=== PATIENT | female | born 1985 | race Caucasian/White ===

== ENCOUNTER 2016-11-29 14:33 | Emergency (ER) | payer MEDICAID ==
[~2016-11-29] VITALS: Ht 162.6 cm; Wt 69.0 kg
[2016-11-29 14:38] VITALS: Ht 162.6 cm; Wt 69.0 kg
[2016-11-29 16:23] LABS: BASOPHILS % 0.3 % (0.0-2.0); EOSINOPHILS # 0.2 10^3/ul (0.0-0.5); EOSINOPHILS % 1.3 % (0.0-7.0); HEMATOCRIT 39.4 % (37.0-47.0); HEMOGLOBIN 13.6 g/dl (12.0-16.0); LYMPHOCYTES # 2.1 10^3/ul (0.8-2.9); LYMPHOCYTES % 14.8 % (15.0-51.0); MEAN CORPUSCULAR HEMOGLOBIN 29.2 pg (29.0-33.0); MEAN CORPUSCULAR HGB CONC 34.6 g/dl (32.0-37.0); MEAN CORPUSCULAR VOLUME 84.5 fl (82.0-101.0); MEAN PLATELET VOLUME 7.6 fl (7.4-10.4); MONOCYTES % 6.8 % (0.0-11.0); NEUTROPHIL # 10.9 10^3/ul (1.6-7.5); NEUTROPHILS % 76.8 % (39.0-77.0); PLATELET COUNT 273 10^3/UL (140-440); RED BLOOD COUNT 4.67 10^6/ul (4.20-5.40); RED CELL DISTRIBUTION WIDTH 12.9 % (11.5-14.5); UNCORRECTED WBC 14.2 10^3/ul (4.8-10.8); WHITE BLOOD COUNT 14.2 10^3/ul (4.8-10.8)
[2016-11-29 16:24] LABS: CONDITION 1
[2016-11-29 16:28] LABS: ADD UMIC YES; URINE BILIRUBIN (Dip) NEGATIVE (NEGATIVE); URINE BLOOD (Dip) 2+ (NEGATIVE); URINE COLOR YELLOW (YELLOW); URINE GLUCOSE (Dip) NEGATIVE (NEGATIVE); URINE KETONES (Dip) NEGATIVE (NEGATIVE); URINE LEUKOCYTE ESTERASE (Dip) NEGATIVE (NEGATIVE); URINE NITRITE (Dip) NEGATIVE (NEGATIVE); URINE TOTAL PROTEIN (Dip) NEGATIVE (NEGATIVE); URINE UROBILINOGEN (Dip) 0.2 E.U./dL (0.1-1.0)
--- NOTE | 2016-11-29 16:44 | ERD ---
ER Documentation Chief Complaint Date/Time DATE: 11/29/16 TIME: 16:40 Chief Complaint SPOTTING TODAY , 10 WEEKS PREG , LMP 09/21/16 HPI This is a 31-year-old female who presents to the emergency department today complaining of some vaginal spotting that started today. Patient indicates she is approximately 10 weeks . She has had some nausea but no vomiting. Denies AP or chills, dysuria, abdominal pain or cramping. States she is scheduled to have a ultrasound this Sunday. States she was seen here at the hospital in July and had a D&C for a failed at that time. ROS All systems reviewed and are negative except as per history of present illness. Medications Home Meds Active Scripts Ondansetron Hcl* (Zofran*) 4 Mg Tablet, 4 MG PO Q6H for NAUSEA AND/OR VOMITING, #30 TAB Prov:NOMAN CARBONE PA-C 11/29/16 Acetaminophen* (Tylophen*) 500 Mg Capsule, 1 CAP PO Q6H Y for PAIN AND OR ELEVATED TEMP, #30 CAP Prov:NOMAN CARBONE PA-C 11/29/16 Allergies Allergies: Coded Allergies: Penicillins (Verified Allergy, Unknown, rash, 08/01/16) PMhx/Soc History of Surgery: No Anesthesia Reaction: No Hx Neurological Disorder: No Hx Respiratory Disorders: No Hx Cardiac Disorders: No Hx Psychiatric Problems: No Hx Miscellaneous Medical Probl: No Hx Alcohol Use: No Hx Substance Use: No Hx Tobacco Use: No Physical Exam Vitals Vital Signs Date Time Temp Pulse Resp B/P Pulse Ox O2 Delivery O2 Flow Rate FiO2 11/29/16 14:38 98.3 86 18 119/71 100 Physical Exam Const: No acute distress Head: Atraumatic Eyes: Normal Conjunctiva ENT: Normal External Ears, Nose and Mouth. Neck: Full range of motion..~ No meningismus. Resp: Clear to auscultation bilaterally Cardio: Regular rate and rhythm, no murmurs Abd: Soft, non tender, non distended. Normal bowel sounds. No right lower quadrant pain. No left lower quadrant pain. Skin: No petechiae or rashes Neur: Awake and alert Psych: Normal Mood and Affect Result Diagram: 11/29/16 1550 Results 24 hrs Laboratory Tests Test 1/11/17 15:57 Basophils # 0.010^3/ul Basophils % 0.3% Beta HCG, Quantitative 33154.0mIU/ml Eosinophils # 0.210^3/ul Eosinophils % 1.3% Hematocrit 39.4% Hemoglobin 13.6g/dl Lymphocytes # 2.110^3/ul Lymphocytes % 14.8% Mean Corpuscular Hemoglobin 29.2pg Mean Corpuscular Hemoglobin Concent 34.6g/dl Mean Corpuscular Volume 84.5fl Mean Platelet Volume 7.6fl Monocytes # 1.010^3/ul Monocytes % 6.8% Neutrophils # 10.910^3/ul Neutrophils % 76.8% Nucleated Red Blood Cells # 0.010^3/ul Nucleated Red Blood Cells % 0.0/100WBC Platelet Count 38512^3/UL Red Blood Count 4.6710^6/ul Red Cell Distribution Width 12.9% Urine Bilirubin NEGATIVE Urine Clarity CLEAR Urine Color YELLOW Urine Glucose NEGATIVE% Urine Hemoglobin 2+ Urine Ketones NEGATIVE Urine Leukocyte Esterase NEGATIVE Urine Microscopic RBC 0-2/HPF Urine Microscopic WBC 0-2/HPF Urine Nitrite NEGATIVE Urine Specific [place] >=1.030 Urine Squamous Epithelial Cells FEW Urine Total Protein NEGATIVE Urine Urobilinogen 0.2 E.U./dL Urine pH 5.5 White Blood Count 14.210^3/ul Patient: SAMUEL TORRES : 1985 Age: 31 Sex: F MR #: [id number] DOS: 11/29/16 1549 Ordering MD: NOMAN CARBONE PA-C Location: E Room/Bed: PROCEDURE: OB Ultrasound. CLINICAL INDICATION: Positive test. Vaginal bleeding. TECHNIQUE: Ultrasound of the pelvis was performed with transabdominal and transvaginal sonography in the axial and sagittal planes. COMPARISON: No prior study is available for comparison. FINDINGS: There is a single intrauterine gestational sac. pole and yolk sac are present. There is heart motion. heart rate is 168 beats per minute. [place]-rump length is 2.46 cm. Mean sac diameter is 3.73 cm. There is a small subchorionic hemorrhage. Menstrual age by ultrasound dates is 9 weeks 1 day. This indicates an expected date of delivery of 07/03/2017. The right ovary measures 3.3 x 2.0 x 2.3 cm. The left ovary measures 2.9 x 1.8 x 1.9 cm. Color Doppler and pulsed Doppler sonography demonstrate normal flow to both ovaries. There is no ovarian enlargement or mass. There is no other pelvic mass or free fluid. IMPRESSION: 1. Single live intrauterine gestation of 9 weeks 1 day menstrual age by ultrasound dates. 2. Expected date of delivery is 07/03/2017. 3. Small subchorionic hemorrhage. RPTAT: QQ .Dhaval Magana MD, MD Date Time Electronically viewed and signed by .Dhaval Magana MD, MD on 11/29/2016 17:23 .R/ CC: NOMAN CARBONE PA-C Procedures/MDM This is a 31-year-old female who presents to the emergency department today playing of vaginal spotting that started today. Patient is approximately 10 weeks . Given this I did obtain a complete OB workup. Laboratory work shows an elevated white blood cell count of 14.2. She is not anemic. Platelets are within normal limits. UA is negative for infection. beta Quant hCG 49259.0 Rh Status O+ US shows a single live intrauterine gestation of 9 weeks and 1 day. There is a small subchorionic hemorrhage. There is normal flow to both ovaries. There are no ovarian enlargement or masses. There is no pelvic mass or free fluid. heart rate is 186 bpm. There is a pole and yolk sac present. Symptoms of vaginal spotting may be related to the subchorionic hemorrhage versus early normal versus early failed . I have explained this to the patient. I have explained to the patient that she needs to follow up with her [facility] on Sunday as planned for further evaluation and management repeat beta Quant. Patient denies any abdominal pain. No abdominal pain on physical exam. Low suspicion for any acute surgical abdomen. She declined any pain medication and medication for nausea here in the emergency department. I will give her prescription for Tylenol and for home. At this time the patient is stable for discharge and outpatient management. Patient should follow up with their PCP in the next 1-2 days. They may return to the emergency department sooner for any persistent or worsening of symptoms. Patient understood and agreed with the plan. Departure Diagnosis: Primary Impression: Vaginal bleeding in patient at less than 20 weeks gestation Condition: NOMAN Longoria PA-C Nov 29, 2016 16:44
[2016-11-29 16:54] LABS: SQUAMOUS EPITHELIAL CELL,UR FEW; URINE RBCS 0-2 /HPF (0)
--- NOTE | 2016-11-29 17:24 | RADRPT ---
PROCEDURE: OB Ultrasound. CLINICAL INDICATION: Positive test. Vaginal bleeding. TECHNIQUE: Ultrasound of the pelvis was performed with transabdominal and transvaginal sonography in the axial and sagittal planes. COMPARISON: No prior study is available for comparison. FINDINGS: There is a single intrauterine gestational sac. pole and yolk sac are present. There is heart motion. heart rate is 168 beats per minute. [place]-rump length is 2.46 cm. Mean sac diameter is 3.73 cm. There is a small subchorionic hemorrhage. Menstrual age by ultrasound dates is 9 weeks 1 day. This indicates an expected date of delivery of 07/03/2017. The right ovary measures 3.3 x 2.0 x 2.3 cm. The left ovary measures 2.9 x 1.8 x 1.9 cm. Color Doppler and pulsed Doppler sonography demonstrate normal flow to both ovaries. There is no ovarian enlargement or mass. There is no other pelvic mass or free fluid. IMPRESSION: 1. Single live intrauterine gestation of 9 weeks 1 day menstrual age by ultrasound dates. 2. Expected date of delivery is 07/03/2017. 3. Small subchorionic hemorrhage. RPTAT: QQ .Dhaval Magana MD, MD Date Time Electronically viewed and signed by .Dhaval Magana MD, on 11/29/2016 17:23 .R/
[2016-11-29] MEDS ORDERED: ONDA4TAB8 PO (17:43)
[2016-11-29] MEDS ORDERED: ACET500C5 PO (17:43)
== END 2016-11-29 18:18 | disposition home or self-care (01) ==
LOC: FTE 14:33
DX: O20.9 Hemorrhage in early pregnancy, unspecified (principal); R11.0 Nausea; O99.89 Other specified diseases and conditions complicating pregnancy, childbirth and the puerperium; Z3A.09 9 weeks gestation of pregnancy
CPT/HCPCS: 36415; 76801; 76817; 81001; 84702; 85025; 86900; 86901; Z7502; 81003